=== PATIENT | male | born 1990 | race Caucasian/White ===

== ENCOUNTER 2024-05-11 15:06 | Emergency (ER) | payer SELFPAY ==
[~2024-05-11] VITALS: Ht 170.2 cm; Wt 81.8 kg
[~2024-05-11 15:06] MED LIST: AMBIEN 10MG10 MG PO; ATIVAN 1MG T1 MG/TAB PO; BACTRIM DS 8001 TAB PO; BUSPAR5 MG PO; CEPHALEXIN500 M1 PO; DOXYCYCLINE 10100 MG PO; DUO-KAPS1 CAP PO; FLOMAX 0.40.4 MG/CAP PO; FOLIC ACID 11 MG/TA1 PO; GENTLE LAXATIVE10 MG RC; HIBICLENS4% TP; LEXAPRO20 MG PO; LIBRIUM 25M25 MG/CAP PO; MULTI VITAMINS1 TAB PO; NATURE'S BLEND100 M2 PO; NO HOME MEDICATIONS; NORCO 325 MG-51 TAB PO; PERCOCET 325 MG1 TA2 PO; RAPAFLO8 MG PO; STOOL SOFTENER100 M2 RC; ZOFRAN ODT4 MG PO
[2024-05-11 15:12] VITALS: TEMP 97.8
[2024-05-11 15:39] LABS: BASO % 0.6 % (0.0-2.0); EOS % 0.3 % (0.0-4.0); GRAN # 4.3 K/mm3 (1.4-6.5); GRAN % 68.7 % (42.2-75.2); HEMATOCRIT 43.3 % (42.0-52.0); HEMOGLOBIN 14.8 g/dl (13.5-18.0); LYMPH # 1.6 K/mm3 (1.2-3.4); LYMPH % 25.4 % (20.0-51.0); MEAN CELL VOLUME 86 fl (80.0-100.0); MEAN CORPUSCULAR HEMOGLOBIN 30 pg (27-31); MEAN CORPUSCULAR HGB CONC 34 g/dl (33.0-37.0); MEAN PLATELET VOLUME 9.7 fl (7.4-10.4); MONO # 0.3 K/mm3 (0.1-0.6); MONO % 4.2 % (1.7-9.3); PLATELET COUNT 199 K/mm3 (130-400); RED BLOOD COUNT 5.02 M/mm3 (4.20-5.60)
[2024-05-11 16:15] LABS: ALBUMIN 3.9 g/dL (3.5-5.0); BILIRUBIN,TOTAL 0.6 mg/dL (0.2-1.2); CALCIUM 8.4 mg/dL (8.4-10.2); CREATININE, serum 0.93 mg/dL (0.72-1.25); TOTAL PROTEIN 6.7 g/dl (6.2-8.1)
[2024-05-11 19:42] VITALS: BP 123/85; PULSE 85
[2024-05-12] MEDS ORDERED: DESYREL 50MG50 MG PO (13:01)
== END 2024-05-11 19:42 | disposition home or self-care (01) ==
LOC: COL.ER 15:06 → EDBD 15:07 → COL.ER 19:42
PROVIDERS: Physician Assistant
DX: S00.11XA Contusion of right eyelid and periocular area, initial encounter (principal); S00.81XA Abrasion of other part of head, initial encounter; R41.82 Altered mental status, unspecified; F10.129 Alcohol abuse with intoxication, unspecified; Y90.8 Blood alcohol level of 240 mg/100 ml or more; X58.XXXA Exposure to other specified factors, initial encounter

== ENCOUNTER 2024-05-12 09:28 | Observation (INO) | payer SELFPAY ==
[2024-05-12] VITALS (8 sets, daily range): BP systolic 104–134; BP diastolic 64–83; PULSE 60–96; TEMP 98.2–98.5
[~2024-05-12] VITALS: Ht 170.2 cm; Wt 81.8 kg
[~2024-05-12 09:28] MED LIST changes: +Thiamine 100 MG TAB PO SCH
[2024-05-12] MEDS ORDERED: NS 1,000 ML IV ONE ×2 (10:00→12:45)
[2024-05-12] MEDS ORDERED: LORazepam 2 MG/ML 1 ML VIAL IV ONE ×2 (10:00→12:45)
[2024-05-12 10:32] LABS: BASO # 0.1 K/mm3 (0.0-0.2); BASO % 0.6 % (0.0-2.0); EOS % 0.1 % (0.0-4.0); GRAN # 6.8 K/mm3 (1.4-6.5); GRAN % 78.3 % (42.2-75.2); HEMATOCRIT 43.1 % (42.0-52.0); HEMOGLOBIN 14.8 g/dl (13.5-18.0); LYMPH # 1.2 K/mm3 (1.2-3.4); LYMPH % 14.3 % (20.0-51.0); MEAN CELL VOLUME 85 fl (80.0-100.0); MEAN CORPUSCULAR HEMOGLOBIN 29 pg (27-31); MEAN CORPUSCULAR HGB CONC 34 g/dl (33.0-37.0); MEAN PLATELET VOLUME 9.9 fl (7.4-10.4); MONO # 0.5 K/mm3 (0.1-0.6); MONO % 6.2 % (1.7-9.3); PLATELET COUNT 232 K/mm3 (130-400); RED BLOOD COUNT 5.07 M/mm3 (4.20-5.60); REDCELL DISTRIBUTION WIDTH-CV 12.1 % (11.5-14.5)
[2024-05-12 10:49] LABS: ALANINE AMINOTRANSFERASE 62 U/L (0-55); ALBUMIN 4.1 g/dL (3.5-5.0); ALCOHOL(ethanol),MEDICAL 41 mg/dL (0-10); ALKALINE PHOSPHATASE 96 U/L (40-150); ANION GAP 21 mmol/L (7-16); AST,SGOT 61 U/L (5-34); BILIRUBIN,TOTAL 0.7 mg/dL (0.2-1.2); BLOOD UREA NITROGEN 14 mg/dL (9-21); CALCIUM 9.1 mg/dL (8.4-10.2); CHLORIDE 99 mEq/L (98-107); CREATININE, serum 0.85 mg/dL (0.72-1.25); GLUCOSE 79 mg/dL (70-99); POTASSIUM 4.2 mEq/L (3.5-4.5); SODIUM 138 mEq/L (136-145); TOTAL PROTEIN 7.1 g/dl (6.2-8.1)
[2024-05-12 11:10] LABS: SALICYLATE < 5.0 mg/dL (15.0-30.0)
[2024-05-12] MEDS ORDERED: DESYREL 50MG50 MG PO (13:01)
[2024-05-12] MEDS ORDERED: Ondansetron 4 MG/2 ML VIAL IV PRN (14:30)
[2024-05-12] MEDS ORDERED: Acetaminophen 325 MG TAB PO PRN (14:30)
[2024-05-12] MEDS ORDERED: LORazepam 2 MG/ML 1 ML VIAL IV PRN (14:45)
[2024-05-12] MEDS ORDERED: Mag/Al Hydrox/Simeth Susp 30 ML CUP PO PRN (14:45)
--- NOTE | 2024-05-12 14:50 | NUR ---
PATIENT CAME FROM ER AT THIS TIME. PATIENT ON ROOM AIR, DENIES PAIN AT THIS TIME. REPORTS FEELING ANXIOUS, TREMORS AND RESLESSNESS NOTED. PATIENT IS ON CIWA PROTOCOL. IV TO RIGHT AC FLUSHING WELL C/D/I. CALL LIGHT WITHIN REACH. INTAKE ASSESSMENT COMPLETED.
[2024-05-12] MEDS ORDERED: Magnesium Sulfate 4% 50 ML IV ONE (15:30)
[2024-05-12] MEDS ORDERED: Multivitamin TAB PO SCH (17:00)
--- NOTE | 2024-05-12 22:42 | NUR ---
patient lying in bed, alert and oriented x4. denies chest pain and shortness of breath. reporting increasing anxiety and mild headache, tylenol given per request. denies nausea and upon reassessment denies headache. ativan 1 mg given for CIWA score of 8. Bola- LISSET Molina notified of pt request for sleeping aide, new orders placed and initiated. small red closed abrasion to forehead. ambulating with steady gait, ambulated with additional RN to vending machine and back in bed. pt has no further needs, questions or concerns at this time. call light within reach.
[2024-05-13] VITALS (15 sets, daily range): BP systolic 97–138; BP diastolic 60–83; PULSE 56–93; TEMP 97.5–98.5
[2024-05-13 06:52] LABS: BASO % 0.6 % (0.0-2.0); EOS # 0.1 K/mm3 (0.0-0.7); EOS % 1.1 % (0.0-4.0); GRAN # 3.8 K/mm3 (1.4-6.5); GRAN % 72.3 % (42.2-75.2); HEMOGLOBIN 14.1 g/dl (13.5-18.0); LYMPH # 0.9 K/mm3 (1.2-3.4); LYMPH % 17.1 % (20.0-51.0); MEAN CELL VOLUME 84 fl (80.0-100.0); MEAN CORPUSCULAR HEMOGLOBIN 30 pg (27-31); MEAN CORPUSCULAR HGB CONC 35 g/dl (33.0-37.0); MONO # 0.5 K/mm3 (0.1-0.6); MONO % 8.7 % (1.7-9.3); PLATELET COUNT 153 K/mm3 (130-400); RED BLOOD COUNT 4.74 M/mm3 (4.20-5.60); REDCELL DISTRIBUTION WIDTH-CV 12.1 % (11.5-14.5)
[2024-05-13 07:07] LABS: ALBUMIN 3.5 g/dL (3.5-5.0); BILIRUBIN,TOTAL 0.8 mg/dL (0.2-1.2); CALCIUM 8.5 mg/dL (8.4-10.2); CREATININE, serum 0.81 mg/dL (0.72-1.25); POTASSIUM 3.7 mEq/L (3.5-4.5); TOTAL PROTEIN 6.1 g/dl (6.2-8.1)
[2024-05-13] MEDS ORDERED: Pantoprazole 40 MG in NS 10 ML IV SCH (09:00)
[2024-05-13] MEDS ORDERED: Folic Acid 1 MG TAB PO SCH (09:00)
--- NOTE | 2024-05-13 09:30 | NUR ---
PATIENT ALERT AND ORIENTED X4. LAYING IN BED RESTING, DENIES PAIN, NAUSEA AT THIS TIME. SOME MILD SWEATS. PATIENT ON ROOM AIR. PATIENT INDEPENDENT IN ROOM. CALL LIGHT WITHIN REACH. BED AT LOWEST POSITION.
--- NOTE | 2024-05-13 11:37 | NUR ---
squadron worker met with pt to discuss discharge planning. He reports to live with his mother, Rayna [phone] and sister in [place]. He sees TERESO Chang for PCP needs and obtains medications from [facility] with no difficulties. He reports complications with moving back to the area and having to "re-establish" with the pharmacy and this has taken over a week. he expresses no concerns affording medications. Pt confirmed to not have insurance. He was open to options and discussing with financial cost analyst. ARPIT informed him the the options to obtain insurance. He is independent with ADLS and uses no DME. He does not have a DPOA-HC and reports both his parents are living. Pt was concerned about his home RX of Lexipro and if his Mother can bring it. ARPIT informed ZEINA Joyce about this. Pt reports he used alcohol as a coping mechanism for the stress with his medication/pharmacy issue. He reports to have previously been inpatient before and is aware of the options and steps the CSU needs done. He intends to return home with his mother, then complete the needs required by the CSU. ARPIT provided the MAO/AA resource list and he had no questions. ARPIT emailed financial counseling of the need to meet with pt. Discharge Plan: tbd
--- NOTE | 2024-05-13 12:50 | NUR ---
straightedge worker spoke with Ke at [facility] who reports pt was assessed yesterday and did not have neds, also they were later informed he was being admitted and there was no follow-up then. ARPIT spoke with Therapist Floridalma who reports that pt has a h/o Depression, but did not confirm concerns of SI/HI. She states a "re-screen is not inappropriate, but he also could leave and follow up with walk in services." She reports that pt would not be involuntary and she does not see anything to warrant this. She mentioned them assisting with "social detox" following the medical detox and they can help stabilize him. Pt can be re-screened if willing, but could also d/c and follow up as an outpatient per the Therapist. ARPIT informed her pt wants to return home with his family, then follow up. Discharge Plan: home [place] screen if wanted
[2024-05-13] MEDS ORDERED: Escitalopram 10 MG TAB PO SCH (15:43)
[2024-05-13] MEDS ORDERED: traZODone 50 MG TAB PO SCH (21:00)
--- NOTE | 2024-05-13 21:27 | NUR ---
Patient lying in bed, alert and oriented x4. denies chest pain and shortness of breath. ambulated with PCT to vending machine and back in bed, steady gait, independently showered. per pt request and CIWA score of 8 ativan given. small red closed abrasion to forehead and bruising to right forearm noted, CDI. call light within reach. pt has no further needs, questions or concerns at this time.
[2024-05-14 03:24] VITALS: BP 119/77; PULSE 80; TEMP 98.1
[2024-05-14 03:29] VITALS: BP_SYST 119
[2024-05-14 06:53] LABS: ALBUMIN 3.8 g/dL (3.5-5.0); BILIRUBIN,TOTAL 0.6 mg/dL (0.2-1.2); CALCIUM 9.2 mg/dL (8.4-10.2); CREATININE, serum 0.85 mg/dL (0.72-1.25); POTASSIUM 3.9 mEq/L (3.5-4.5)
[2024-05-14 08:07] VITALS: BP 116/72; PULSE 75; TEMP 98.3
[2024-05-14 09:00] VITALS: BP_SYST 116
--- NOTE | 2024-05-14 09:03 | NUR ---
Patient is resting in bed, states he has some anxiety, trying to sleep and listening to water sounds on cellphone. States he ate breakfast. Assessment completed, meds given. He asks for some ativan. No scoring enought to get it. Continue monitoring.
[2024-05-14] MEDS ORDERED: DESYREL 50MG50 MG PO (09:40)
[2024-05-14] MEDS ORDERED: LEXAPRO20 MG PO (09:40)
--- NOTE | 2024-05-14 10:42 | NUR ---
Patient was provided with discharge information, all questions anwered. IV access was discontinued.
--- NOTE | 2024-05-14 11:08 | NUR ---
Initial visit; Patient very sweet. spoke with him about his health and asked that he take better care of himself. 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
--- NOTE | 2024-05-14 13:18 | NUR ---
Lining Ironer attended clinical rounds with the team and patient is cleared for discharge today. SW met with patient and he wants to return home with his mom. Discharge Plan: Home with family
== END 2024-05-14 10:58 | disposition home or self-care (01) ==
LOC: COL.ER 09:28 → MEDICAL 13:03
PROVIDERS: Emergency Medicine; Physician Assistant; ADMIT Hospitalist
DX: F10.939 Alcohol use, unspecified with withdrawal, unspecified (principal); R74.01 Elevation of levels of liver transaminase levels; E87.20 Acidosis, unspecified; R41.0 Disorientation, unspecified; G47.00 Insomnia, unspecified; F32.A Depression, unspecified; Z79.899 Other long term (current) drug therapy; Z86.59 Personal history of other mental and behavioral disorders
CPT/HCPCS: G0378; J2060; J2405; J2470; J3411; J3475; J7030